=== PATIENT | female | born 1955 | race Caucasian/White ===

== ENCOUNTER 2019-10-20 20:40 | Emergency (ER) | payer MEDICARE ==
--- OUTSIDE RECORDS SUMMARY | 2019-10-20 20:49 | XMS REPORT ---
:1955 Author Organization [facility] Address [facility] [address], [place] [id number] Care Team Providers Name Role Phone Allison Rhodes Unavailable Unavailable PROBLEMS Type Condition ICD9-CM [id number] Onset Condition SNOMED Code Code Code Dates Status Problem Fibromyalgia M79.7 Active 75567622 Problem Hiatal hernia K44.9 Active 09664992 Problem Vaginal atrophy N95.2 Active 163300790 Problem Tobacco abuse Z72.0 Active 64160699 Problem Moderate persistent J45.42 Active 982114562 asthma with status asthmaticus Problem Adenomatous polyp D36.9 Active 405524345 Problem Fibrotic lung J84.10 Active 68184401 diseases Problem Gastroesophageal K21.9 Active 372740777 reflux disease Problem Follicular lymphoma C82.90 Active 251946828 Problem Non Hodgkin's C85.90 Active 221856953 lymphoma Problem Chronic obstructive J44.9 Active 60623295 pulmonary disease, unspecified COPD type Problem Altered bowel habits R19.4 Active 65519808 Problem Vitamin D deficiency E55.9 Active 38308281 Problem COPD exacerbation J44.1 Active 549338287 Problem Depressed mood F32.9 Active 891811914 Problem Functional diarrhea K59.1 Active 87712708 Problem Actinic keratoses L57.0 Active 761268122 Problem Quit smoking Z87.891 Active 110706667 Problem Benign essential G25.0 Active 223800027 tremor Problem COPD with J44.1 Active 965653550 exacerbation Problem Hypothyroidism E03.9 Active 07383141 Problem Vitamin B12 E53.8 Active 719300832 deficiency Problem Seborrheic L21.9 Active 08868293 dermatitis Problem Seborrheic keratoses L82.1 Active 555788530 Problem Xerosis cutis L85.3 Active 57370328 Problem Acrochordon L91.8 Active 108214168 ALLERGIES No Information ENCOUNTERS Encounter Location Date Diagnosis [address] January, [place] [address] Sep, [place] [address] Jul, [place] [address] Jul, Medicare annual wellness [place] visit, subsequent Z00.00 ; [address] Hypothyroidism E03.9 ; Gastroesophageal reflux disease K21.9 ; Non Hodgkin's lymphoma C85.90 ; Benign essential tremor G25.0 ; Immunization due Z23 ; Fibromyalgia M79.7 ; Chronic obstructive pulmonary disease, unspecified COPD type J44.9 ; Adenomatous polyp D36.9 ; Functional diarrhea K59.1 ; Vitamin D deficiency E55.9 and Quit smoking Z87.[address] Jun, [place] [address] Jun, Hiatal hernia K44.9 [place] [address] May, COPD with exacerbation J44.1 [place] [address] May, [place] [address] Mar, [place] [address] Mar, Upper respiratory tract [place] infection, unspecified type [address] [address]06[address] January, [place] [address] Dec, Hypothyroidism E03.9 ; [place] Gastroesophageal reflux [address] disease K21.9 ; Non Hodgkin's lymphoma C85.90 ; Benign essential tremor G25.0 ; Fibromyalgia M79.7 ; Chronic obstructive pulmonary disease, unspecified COPD type J44.9 ; Adenomatous polyp D36.9 ; Functional diarrhea K59.1 ; Vitamin D deficiency E55.9 ; Quit smoking Z87.891 and Irritation of eye H57.89 [facility] [address] [facility] Dec, Hiatal hernia K44.9 [place] [address] [facility] [address] [place] [address] Oct, Actinic keratoses L57.0 ; [place] Seborrheic dermatitis L21.9 [address] ; Xerosis cutis L85.3 ; Seborrheic keratoses L82.1 and Acrochordon L91.8 [facility] [address] Oct, 2018 [place] [address] [facility] [address] [place] [address] Jul, [place] [address] [facility] Jun, Medicare annual wellness [place] visit, subsequent Z00.00 ; [address] Hypothyroidism E03.9 ; Gastroesophageal reflux disease K21.9 ; Non Hodgkin's lymphoma C85.90 ; Benign essential tremor G25.0 ; Fibromyalgia M79.7 ; Encounter for immunization Z23 ; Chronic obstructive pulmonary disease, unspecified COPD type J44.9 ; Tobacco abuse Z72.0 ; Adenomatous polyp D36.9 ; Functional diarrhea K59.1 ; Vitamin D deficiency E55.9 and Skin tag L91.8 [facility] [address] [facility] 16 Jun, 2018 [place] [address] [facility] [place] [address] [place] [address] Jun, Hiatal hernia K44.9 [place] [address] [facility] [address] [facility] Jun, Chronic obstructive [place] disease, [address] unspecified COPD type J44.9 [facility] [address] [facility] May, [place] [address] [facility] [address] [facility] May, Hiatal hernia K44.9 [place] [address] [facility] [address] [facility] Mar, [place] [address] Mar, COPD exacerbation J44.1 and [place] Hypothyroidism E03.9 [address] [facility] [address] [facility] Feb, Hypothyroidism E03.9 ; [place] Gastroesophageal reflux [address] disease K21.9 ; Non Hodgkin's lymphoma C85.90 ; Benign essential tremor G25.0 ; Fibromyalgia M79.7 ; Chronic obstructive pulmonary disease, unspecified COPD type J44.9 ; Adenomatous polyp D36.9 ; Functional diarrhea K59.1 and History of tobacco abuse Z87.891 [facility] [address] [facility] January, Hiatal hernia K44.9 [place] [address] [facility] [address] [facility] January, Hiatal hernia K44.9 [place] [address] [facility] [address] [facility] Dec, Hypothyroidism E03.9 [place] [address] [facility] [address] [facility] Dec, [place] [address] [facility] [address] [facility] Nov, Hypothyroidism E03.9 [place] [address] [facility] [address] [facility] Nov, Depressed mood F32.9 [place] [address] [facility] [address] [facility] Oct, [place] [address] [facility] [address] [facility] Jul, Hiatal hernia K44.9 [place] [address] [facility] [address] [facility] Jun, Hiatal hernia K44.9 [place] [address] [facility] [address] [facility] Jun, Medicare annual wellness [place] visit, subsequent Z00.00 ; [address] Hypothyroidism E03.9 ; Gastroesophageal reflux disease K21.9 ; Non Hodgkin's lymphoma C85.90 ; Benign essential tremor G25.0 ; Fibromyalgia M79.7 ; Chronic obstructive pulmonary disease, unspecified COPD type J44.9 ; Tobacco abuse Z72.0 ; Adenomatous polyp D36.9 ; Functional diarrhea K59.1 and Encounter for immunization Z23 [facility] [address] [facility] May, Functional diarrhea K59.1 ; [place] Other fatigue R53.83 ; [address] Depressed mood F32.9 and Hypothyroidism E03.9 [facility] [address] [facility] 08 May, 2017 Other fatigue R53.83 ; [place] Vitamin D deficiency E55.9 ; [address] Depressed mood F32.9 ; Fibromyalgia M79.7 ; Vitamin B12 deficiency E53.8 and Follicular lymphoma C82.90 [facility] [address] [facility] May, [place] [address] [facility] [address] [facility] Apr, Moderate persistent asthma [place] with status asthmaticus [address] J45.42 [facility] [address] [facility] Apr, [place] [address] [facility] [address] [facility] Mar, Hiatal hernia K44.9 [place] [address] [facility] [address] [facility] Mar, Haemophilus infection A49.2 [place] and COPD exacerbation J44.1 [address] [facility] [address] [place] [address] Feb, Hospital discharge follow-up [place] Z09 ; Haemophilus infection [address] A49.2 ; Tobacco abuse Z72.0 ; Hypothyroidism E03.9 ; Non Hodgkin's lymphoma C85.90 ; COPD exacerbation J44.1 and Vitamin D deficiency E55.9 [facility] [address] [facility] Feb, [place] [address] [facility] [address] [facility] Feb, [place] [address] [facility] [address] [facility] Feb, COPD exacerbation J44.1 [place] [address] [facility] [address] [facility] Nov, Hypothyroidism E03.9 [place] [address] [facility] [address] [facility] Oct, Urine frequency R35.0 [place] [address] [facility] [address] [place] [address] Sep, Hiatal hernia K44.9 [place] [address] [facility] [address] [facility] Aug, [place] [address] [facility] [address] Aug, Hypothyroidism E03.9 ; [place] Gastroesophageal reflux [address] disease K21.9 ; Non Hodgkin's lymphoma C85.90 ; Benign essential tremor G25.0 ; Fibromyalgia M79.7 ; Encounter for immunization Z23 ; Chronic obstructive pulmonary disease, unspecified COPD type J44.9 and Tobacco abuse Z72.0 Silverio Nichols [facility] Jul, [place] [address] [facility] [address] 12 Jun, 2016 Encounter for immunization [place] Z23 [address] [facility] [address] Feb, Wellness examination Z00.00 [place] ; Hypothyroidism E03.9 ; [address] Gastroesophageal reflux disease K21.9 ; Non Hodgkin's lymphoma C85.90 ; Benign essential tremor G25.0 ; Fibromyalgia M79.7 ; Tobacco abuse Z72.0 ; Fibrotic lung diseases J84.10 ; Hiatal hernia K44.9 and Altered bowel habits R19.4 [facility] [address] Feb, Hypothyroidism 244.9 [place] [address] [facility] [address] Nov, [place] [address] [facility] [address] [place] [address] Sep, UTI (urinary tract [place] infection) N39.0 ; Non [address] Hodgkin's lymphoma C85.90 and Hiatal hernia K44.9 [facility] [address] Sep, [place] [address] [facility] [address] [place] [address] Aug, [place] [address] [facility] [address] [place] [address] Aug, Follicular lymphoma C82.90 ; [place] Non Hodgkin's lymphoma [address] C85.90 ; Benign essential tremor G25.0 ; Fibromyalgia M79.7 ; Tobacco abuse Z72.0 ; Vitamin B12 deficiency E53.8 ; Fibrotic lung diseases J84.10 ; Hiatal hernia K44.9 ; Vaginal atrophy N95.2 ; Gastroesophageal reflux disease K21.9 ; Hypothyroidism E03.9 and Back pain M54.9 [facility] [place] [address] [place] [address] Aug, [place] [address] [place] [address] [facility] 14 Jun, 2015 Need for prophylactic [place] vaccination and inoculation [address] against influenza Z23 [facility] [place] [address] [address] Apr, [place] [address] Feb, Hypothyroidism 244.9 [place] [address] 15 Feb, 2015 Follicular lymphoma 202.00 ; [place] Hypothyroidism 244.9 ; [address] Benign essential tremor syndrome 333.1 ; Fibromyalgia 729.1 ; Tobacco abuse 305.1 ; Vitamin B 12 deficiency 266.2 ; Fibrotic lung diseases 515 ; Hiatal hernia 553.3 ; Healthcare maintenance V70.0 ; Bronchitis 490 and Vaginal atrophy 627.3 [facility] [place] [address] [place] January, Urinary urgency 788.63 ; [place] Smoking history V15.82 and [address] Frequent UTI 599.0 [facility] [place] Dec, Urinary frequency 788.41 ; [place] Mixed incontinence urge and [address] stress (male)(female) 788.33 ; Hx: UTI (urinary tract infection) V13.02 and Lymphoma 202.80 [facility] [place] [address] [place] Feb, UTI (lower urinary tract [place] infection) 599.0 ; [address] Lymphadenopathy 785.6 ; Hematuria - Gross 599.71 ; Abdominal pain, other specified site 789.09 ; Personal history of, urinary (tract) infection V13.02 and History of non-Hodgkin's lymphoma V10.79 [facility] [place] [address] [place] Apr, Kidney stone 592.0 [place] [address] IMMUNIZATIONS No Known Immunizations SOCIAL HISTORY Never Assessed REASON FOR REFERRAL FUNCTIONAL STATUS PLAN OF CARE VITAL SIGNS MEDICATIONS Unknown Medications PROCEDURES No Known procedures RESULTS No Results REASON FOR VISIT Insurance Providers [facility] Member Patient Patient Patient Patient Patient Subscriber Subscriber Subscriber Group Insurance Plan Plan Plan Plan ID Relationship Address Phone Name Date of ID Name Date of No Type Insurance Insurance Insurance Coverage to Subscriber Address Phone Name Dates MEDICARE [phone] MEDICARE self MARIA DOLORES [id number] Part A and [id number] Part [place] [address] [facility] [phone] AAR self MARIA DOLORES [id number] CARE CLAIM DIV CARE OPTIONS [id number] [facility] [address] [employer] HMO [phone] [employer] HMO self MARIA DOLORES [id number] [facility] [address] MEDICAL (GENERAL) HISTORY Type Description Date Medical History Cancer 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 02/26/18 Medical History Flu vaccine 07/11/14 Medical History Stem Cell Transplant history of Medical History Colonoscopy 2004 and 2011 and 04/11/2017 and 02/2018 Medical History colonoscopy June 2012 small nonbleeding hemorrhoids small polyp removed x4 (adenomatousx3 /hyperplastic x 1) Medical History colonoscopy 04/11/2017, diverticulosis in the rectosigmoid colon, sigmoid colon, descending colon. Polyps removed, tubular adenoma IV year follow-up Medical History 03/10/2017, PFTs with methacholine challenge, study was positive, patient has some degree of air trapping, diffusion capacity impairment. Medical History CT of the abdomen pelvis 01/30/2018 no acute cardiopulmonary process Medical History Colonoscopy 02/21/18 Dr. Marge Molina 6-8 polyps removed, requested report Surgical History Hysterectomy Surgical History Cyst on ovaries Surgical History Appendectomy Surgical History cholecystectomy Surgical History colonoscopy 04-11-17 Hospitalization History Cancer 2009 Hospitalization History surgical related Hospitalization History UTI-ER 09/2014 Hospitalization History [facility]-COPD with acute bronchitis, possible 02/16-2016 reactive airway disease, RSV, early bacterial pneumonia, hypothyroidism, depression, active smoking, constipation, hypokalemia, fibromyalgia, CKD
[2019-10-20 21:07] VITALS: BP 144/92
--- NOTE | 2019-10-20 21:40 | UC ---
Complaint Female HPI - HPI Summary HPI Summary: PATIENT HAS HAD SEVERAL WEEKS OF DYSURIA, FREQUENCY AND URGENCY. HAS BEEN TRYING TO TREAT THE SYMPTOMS WITH OTC AZO. ADMITS SHE IS NOT VERY GOOD AT HYDRATING. DENIES BACK PAIN, NAUSEA, FEVER. - History Of Current Complaint Chief Complaint: UCGU Stated Complaint: UTI Time Seen by Provider: 10/20/19 20:54 Hx Obtained From: Patient Hx Last Menstrual Period: post Onset/Duration: Gradual Onset, Lasting Weeks, Still Present Severity Initially: Moderate Severity Currently: Moderate Pain Intensity: 7 Pain Scale Used: 0-10 Numeric Character: Burning Aggravating Factor(s): Urination Alleviating Factor(s): Nothing Associated Signs And Symptoms: Negative: Fever, Back Pain, Vaginal Bleeding/ Discharge, Nausea - Allergies/Home Medications Allergies/Adverse Reactions: Allergies Allergy/AdvReac Type Severity Reaction Status Date / Time No Known Allergies Allergy Verified 10/20/19 21:13 Home Medications: Home Medications ALPRAZolam TAB* [Xanax TAB*] 1 tab PO DAILY 10/20/19 [History Confirmed 10/20/19 ] Albuterol 2.5MG/3ML (0.083%)* [Ventolin 2.5 MG/3 ML NEB.SEAN*] 1 neb INH QID PRN 10/20/19 [History Confirmed 10/20/19] Albuterol HFA INHALER* [Ventolin HFA Inhaler*] 2 puff INH QID 10/20/19 [History Confirmed 10/20/19] DULoxetine DR CAP* [Cymbalta CAP*] 1 tab PO DAILY 10/20/19 [History Confirmed ] Ibuprofen TAB* [Motrin TAB* 600 MG] 400 mg PO BID 10/20/19 [History Confirmed ] Levothyroxine Sodium [Synthroid] 1 tab PO DAILY 10/20/19 [History Confirmed ] Omeprazole 1 tab PO DAILY 10/20/19 [History Confirmed 10/20/19] PMH/Surg Hx/FS Hx/Imm Hx Endocrine History: Hypothyroidism Other Cancer History: NON HODGKINS LYMPHOMA - Surgical History Surgical History: None - Family History Known Family History: Positive: Non-Contributory - Social History Alcohol Use: None Substance Use Type: None Smoking Status (MU): Former Smoker Review of Systems All Other Systems Reviewed And Are Negative: Yes Constitutional: Positive: Negative Respiratory: Positive: Negative Cardiovascular: Positive: Negative Gastrointestinal: Positive: Negative Genitourinary: Positive: Dysuria, Frequency, Urgency Physical Exam Triage Information Reviewed: Yes Appearance: Well-Appearing, No Pain Distress, Well-Nourished Vital Signs: Initial Vital Signs Temp 97 F 10/20/19 20:57 Pulse 102 10/20/19 20:57 Resp 16 10/20/19 20:57 BP 144/92 10/20/19 20:57 Pulse Ox 97 10/20/19 20:57 Laboratory Tests 10/20/19 21:19 POC Urine Color Yellow POC Urine Clarity Clear POC Urine pH 5.5 POC Ur Specif Irving 1.025 POC Urine Protein Trace POC Ur Glucose (UA) Negative POC Urine Ketones Negative POC Urine Blood 2+ A POC Urine Nitrite Negative POC Urine Bilirubin Negative POC Urine Urobilinogen 0.2 POC U Leukocyte Esteras 2+ A Vital Signs Reviewed: Yes Eyes: Positive: Conjunctiva Clear ENT: Positive: Hearing grossly normal Neck: Positive: Supple Respiratory: Positive: No respiratory distress, No accessory muscle use Cardiovascular: Positive: Pulses Normal Abdomen Description: Positive: Nontender, Soft. Negative: CVA Tenderness (R), CVA Tenderness (L), Distended, Guarding Musculoskeletal: Positive: No Edema Neurological: Positive: Alert Psychological: Positive: Age Appropriate Behavior Skin: Negative: Rashes Complaint Female Dx - Differential Dx/Diagnosis Provider Diagnosis: UTI (urinary tract infection) Discharge ED - Sign-Out/Discharge Documenting (check all that apply): Patient Departure All imaging exams completed and their final reports reviewed: No Studies - Discharge Plan Condition: Stable Disposition: HOME Prescriptions: Sulfamethox/Trimethoprim DS* [Bactrim DS 800/160 TAB*] 1 tab PO BID #8 tab Patient Education Materials: Urinary Tract Infection in Women (ED) Referrals: [facility] [Outside] - If Needed Additional Instructions: URINE DIP SUGGESTIVE OF URINARY TRACT INFECTION. TAKE THE ANTIBIOTICS TWICE DAILY FOR THE FULL 5 DAYS. STAY WELL HYDRATED. SPECIMEN HAS BEEN SENT FOR CULTURE AND WE WILL CALL YOU IF WE NEED TO CHANGE YOUR MEDICATION. DON'T TAKE THE AZO MORE. CALL THE NUMBER BELOW FOR ASSISTANCE IN ESTABLISHING WITH A PCP An additional resource available to assist in finding the appropriate physician for your health care needs is the [facility]erral Center (Rosalva Horan). You may contact them by calling [phone]. - Billing Disposition and Condition Condition: STABLE Disposition: Home
[2019-10-20] MEDS ORDERED: Sulfamethox/Trimethoprim DS 800/160* TAB PO ONE ×2 (21:43)
== END 2019-10-20 21:58 | disposition home or self-care (01) ==
LOC: UCEAST 20:40
DX: N39.0 Urinary tract infection, site not specified (principal); E03.9 Hypothyroidism, unspecified; Z79.890 Hormone replacement therapy; Z87.891 Personal history of nicotine dependence; Z85.72 Personal history of non-Hodgkin lymphomas
CPT/HCPCS: 81003; 87086; 99202; A9270-GY; G0463